=== PATIENT | male | born 1995 | race Caucasian/White ===

== ENCOUNTER 2016-10-13 11:41 | Emergency (ER) | payer MEDICAID ==
[~2016-10-13] VITALS: Ht 180.3 cm; Wt 72.6 kg
[2016-10-13 14:20] VITALS: BP 143/94
== END 2016-10-13 14:20 | disposition home or self-care (01) ==
LOC: ED 11:41
DX: S80.01XA Contusion of right knee, initial encounter (principal); V43.92XA Unspecified car occupant injured in collision with other type car in traffic accident, initial encounter; Y93.89 Activity, other specified; Y99.8 Other external cause status; Y92.89 Other specified places as the place of occurrence of the external cause